=== PATIENT | male | born 1985 | race Caucasian/White ===

== ENCOUNTER 2017-09-28 22:04 | Emergency (ER) | payer MEDICAID ==
[2017-09-28 22:38] LABS: BASOPHILS # (AUTO) 0.1 10^3/uL (0.0-0.1); BASOPHILS % (AUTO) 0.7 %; EOSINOPHILS # (AUTO) 0.1 10^3/uL (0.0-0.7); EOSINOPHILS % (AUTO) 0.8 %; LYMPHOCYTES # (AUTO) 2.3 10^3/uL (1.5-3.5); LYMPHOCYTES % (AUTO) 22.5 %; MEAN CORPUSCULAR HEMOGLOBIN 31.3 pg (27.0-31.0); MEAN CORPUSCULAR HGB CONC 34.9 g/dL (32.0-36.0); MEAN CORPUSCULAR VOLUME 89.6 fL (80.0-94.0); MEAN PLATELET VOLUME 8.2 fL (7.4-11.4); MONOCYTES # (AUTO) 0.7 10^3/uL (0.0-1.0); MONOCYTES % (AUTO) 6.7 %; NEUTROPHILS # (AUTO) 7.1 10^3/uL (1.5-6.6); NEUTROPHILS % (AUTO) 69.3 %; PLT - PLATELET COUNT 194 10^3/uL (130-450); RED BLOOD COUNT 4.48 10^6/uL (4.70-6.10); RED CELL DISTRIBUTION WIDTH 13.3 % (12.0-15.0); WHITE BLOOD COUNT 10.3 x10^3/uL (4.8-10.8)
[2017-09-28 22:50] LABS: ALBUMIN 4.4 g/dL (3.2-5.5); ALBUMIN/GLOBULIN RATIO 1.8 (1.0-2.2); BILIRUBIN,TOTAL 0.9 mg/dL (0.2-1.0); CREATININE 1.1 mg/dL (0.6-1.2); TOTAL PROTEIN 6.8 g/dL (6.7-8.2)
--- NOTE | 2017-09-28 22:53 | XRAY Report ---
EXAM: CHEST RADIOGRAPHY EXAM DATE: 09/28/2017 10:30 PM. CLINICAL HISTORY: Chest pain. COMPARISON: None. TECHNIQUE: 2 views. FINDINGS: Lungs/Pleura: No focal opacities evident. No pleural effusion. No pneumothorax. Normal volumes. Mediastinum: Heart and mediastinal contours are unremarkable. Other: None. IMPRESSION: No acute intrathoracic plain film abnormality. [facility] Referring Provider Line: [phone] SITE ID: [id number]
--- NOTE | 2017-09-28 23:03 | ED Physician Documentation ---
PD HPI CHEST PAIN - Stated complaint Stated Complaint: CHEST PX - Chief complaint Chief Complaint: Cardiac - History obtained from History obtained from: Patient, Family - History of Present Illness Timing - onset: How many hours ago (8) Timing - onset during: Rest Timing - details: Gradual onset, Now resolved Quality: Sharp, Indigestion Location: Substernal Associated symptoms: No: Shortness of air, Diaphoresis, Nausea, Vomiting, Feeling faint / dizzy, General Weakness Similar symptoms before: Has not had sx before Recently seen: Not recently seen - Additional information Additional information: Patient is a 32 year old male with no significant past medical history who is presenting to the emergency department for chest pain. patient states that this morning he had sharp substernal chest pain. Patient didn't think much of it, but he had another episode this evening so his girlfriend made him come in for evaluation. patient denies any exertional component or significant family history of cardiac disease. Review of Systems Constitutional: denies: Fever, Chills Eyes: denies: Decreased vision, Photophobia Ears: reports: Reviewed and negative Nose: reports: Reviewed and negative Throat: denies: Sore throat Cardiac: reports: Chest pain / pressure. denies: Palpitations, Calf pain Respiratory: denies: Dyspnea, Cough, Wheezing GI: denies: Nausea, Vomiting : reports: Reviewed and negative Skin: reports: Reviewed and negative Musculoskeletal: reports: Reviewed and negative Neurologic: reports: Reviewed and negative Immunocompromised: denies: Immunocompromised PD PAST MEDICAL HISTORY - Past Medical History Past Medical History: No - Past Surgical History Past Surgical History: Yes - Present Medications Home Medications: Ambulatory Orders Medication Instructions Recorded Confirmed No Known Home Medications [No 09/28/17 09/28/17 Known Home Medications] - Allergies Allergies/Adverse Reactions: Allergies Allergy/AdvReac Type Severity Reaction Status Date / Time cefaclor [From [facility]] Allergy Unknown Verified 09/28/17 22:16 - Social History Does the pt smoke?: Yes Smoking Status: Current every day smoker Does the pt drink ETOH?: Yes Does the pt have substance abuse?: Yes Substance Use and Type: Marijuana - Immunizations Immunizations are current?: Yes PD ED PE NORMAL - Vitals Vital signs reviewed: Yes - General General: Alert and oriented X 3, No acute distress, Well developed/nourished - HEENT HEENT: Atraumatic, PERRL - Neck Neck: Supple, no meningeal sign, No JVD - Cardiac Cardiac: RRR, No murmur - Respiratory Respiratory: No respiratory distress, Clear bilaterally - Abdomen Abdomen: Soft, Non tender, Non distended - Derm Derm: Normal color, Warm and dry, No rash - Extremities Extremities: No deformity, No edema, No calf tenderness / cord - Neuro Neuro: Alert and oriented X 3, No motor deficit, No sensory deficit, Normal speech Results - Vitals Vitals: Vital Signs - 24 hr 09/28/17 22:14 Temperature 36.4 C L Heart Rate 91 Respiratory 18 Rate Blood Pressure 143/80 H O2 Saturation 99 Oxygen O2 Source Room air - EKG (time done) 2213 Rate: Rate (enter#) (91) Rhythm: NSR [place]: Normal Intervals: Normal [place] QRS: Normal Ischemia: Normal ST segments Compare to prior EKG: Old EKG unavailable Computer interpretation: Agree with computer - Labs Labs: Laboratory Tests 09/28/17 09/28/17 09/28/17 22:32 22:32 22:32 WBC 10.3 RBC 4.48 L Hgb 14.0 Hct 40.1 L MCV 89.6 MCH 31.3 H MCHC 34.9 RDW 13.3 Plt Count 194 MPV 8.2 Neut # 7.1 H Lymph # 2.3 [place] # 0.7 Eos # 0.1 Baso # 0.1 Absolute Nucleated RBC 0.00 Nucleated RBC % 0.0 Sodium 139 Potassium 4.0 Chloride 106 Carbon Dioxide 26 Anion Gap 7.0 BUN 23 H Creatinine 1.1 Estimated GFR (MDRD) 77 L Glucose 102 H Calcium 9.0 Total Bilirubin 0.9 AST 25 ALT 27 Alkaline Phosphatase 47 Troponin I < 0.04 Total Protein 6.8 Albumin 4.4 Globulin 2.4 Albumin/Globulin Ratio 1.8 Lipase 19 L - Rads (name of study) chest x-ray Radiology: Final report received (no acute disease process) PD MEDICAL DECISION MAKING - ED course Complexity details: reviewed old records, reviewed results, re-evaluated patient , considered differential, d/w patient ED course: Patient was seen and examined at bedside. ekg was performed and was within normal limits. labs were drawn and chest x-ray was done which was also negative. Patient's diagnostics were all within normal limits. Patient had a PERC score and HEART score of 0. Patient required no further inpatient work up and was stable for discharge with outpatient follow up. Departure - Departure Disposition: 01 Home, Self Care Clinical Impression: Gastroesophageal reflux disease Condition: Good Instructions: GERD Dc, ED Chest Pain NonCardiac Follow-Up: primary, care provider [Other] - Within 1 week Comments: Your diagnostics today were within normal limits. there is acute abnormalities on your diagnostics indicating the pain is unlikely cardiac in nature. It could be due to gastritis and you should decrease the amount of spicey and acidic foods that you eat. You should follow up with your doctor if the symptoms become more recurrent. You may return to the emergency department at any time for new, worsening or uncontrollable symptoms.
[2017-09-28 23:13] VITALS: BP 139/80
== END 2017-09-28 23:07 | disposition home or self-care (01) ==
LOC: ED 22:04
DX: K21.9 Gastro-esophageal reflux disease without esophagitis (principal); F17.200 Nicotine dependence, unspecified, uncomplicated
CPT/HCPCS: 36415; 71046; 80053; 83690; 84484; 85025; 93005; 99283; 99285

== ENCOUNTER 2018-06-01 06:55 | Emergency (ER) | payer MEDICAID ==
--- NOTE | 2018-06-01 07:29 | ED Physician Documentation ---
PD HPI BACK INJURY - Stated complaint Stated Complaint: BACK PAIN - History obtained from History obtained from: Patient - History of Present Illness Location: Both, Lower Type of injury: Fall (had 5 foot fall 2 weeks ago onto back but not hurting at that time. Onset low back pain just past couple of days, lower back with some burning feeling in anterior upper thighs. No weakness nor numbness lower in legs. NO urinary symptoms.) Timing - onset: How many days ago (2) Timing - duration: Days (2) Timing - details: Gradual onset, Still present Quality: Pain, Spasm, Aching. No: Tearing Improved by: Rest Worsened by: Moving, Palpating Associated symptoms: No: Fever, Weakness, Numbness, Incontinent of urine Contributing factors: No: Prior back surgery Similar symptoms before: Has not had sx before Recently seen: Not recently seen Review of Systems Constitutional: denies: Fever, Chills Nose: denies: Rhinorrhea / runny nose, Congestion Throat: denies: Sore throat Respiratory: denies: Cough GI: denies: Abdominal Pain, Nausea, Vomiting : denies: Dysuria, Incontinent Skin: denies: Rash, Lesions Neurologic: reports: Other (feeling of burning in anterior thigh muscles). denies: Focal weakness, Numbness PD PAST MEDICAL HISTORY - Past Medical History Cardiovascular: None Respiratory: None Neuro: None Endocrine/Autoimmune: None - Past Surgical History Past Surgical History: Yes - Present Medications Home Medications: Ambulatory Orders Medication Instructions Recorded Confirmed Dexamethasone [Decadron] 4 mg PO DAILY #5 tablet 06/01/18 HYDROcod/ACETAM 5/325 [[place] 5/325] 1 tab PO Q6H PRN #20 tablet 06/01/18 Ibuprofen [Motrin] 600 mg PO TID #30 tab 06/01/18 Methocarbamol [Robaxin] 500 mg PO Q6H PRN #25 tablet 06/01/18 - Allergies Allergies/Adverse Reactions: Allergies Allergy/AdvReac Type Severity Reaction Status Date / Time cefaclor [From [facility]] Allergy Unknown Verified 09/28/17 22:16 - Social History Does the pt smoke?: Yes Smoking Status: Current every day smoker Does the pt drink ETOH?: Yes Does the pt have substance abuse?: Yes - Immunizations Immunizations are current?: Yes PD ED PE NORMAL - Vitals Vital signs reviewed: Yes - General General: Alert and oriented X 3, No acute distress, Well developed/nourished - Abdomen Abdomen: Soft, Non tender - Back Back: No CVA TTP, No spinal TTP (has tenderness mainly right SI area. No vertebral tenderness. No rash nor sores. ) - Derm Derm: Normal color, Warm and dry, No rash - Extremities Extremities: No tenderness to palpate, Normal ROM s pain, No edema, No calf tenderness / cord - Neuro Neuro: Alert and oriented X 3, No motor deficit, No sensory deficit, Normal speech, Other (normal reflexes at knees. Normal sensation to touch in thighs, inguinal area. ) Results - Vitals Vitals: Oxygen O2 Source Room air PD MEDICAL DECISION MAKING - ED course Complexity details: considered differential (no red flags and seems like muscular low back pain. With tenderness in SI area. Had fall 2 weeks ago but no pain then. ), d/w patient - Sepsis Event Vital Signs: Oxygen O2 Source Room air Departure - Departure Disposition: Home, Self Care Clinical Impression: Low back strain Qualifiers: Encounter type: initial encounter Qualified Code(s): S39.012A - Strain of muscle, fascia and tendon of lower back, initial encounter Condition: Stable Record reviewed to determine appropriate education?: Yes Instructions: ED Low Back Pain Injury Follow-Up: Bucky Dickey PA-C [Primary Care Provider] - Prescriptions: Dexamethasone [Decadron] 4 mg PO DAILY #5 tablet HYDROcod/ACETAM 5/325 [[place] 5/325] 1 tab PO Q6H PRN #20 tablet PRN Reason: Pain Ibuprofen [Motrin] 600 mg PO TID #30 tab Methocarbamol [Robaxin] 500 mg PO Q6H PRN #25 tablet PRN Reason: Spasms Comments: Off today and then light lifting for the next several days. Ibuprofen 3 times a day. Decadron also for inflammation daily for the next 5 days. Add Robaxin muscle relaxant for stiffness. Heat and gentle stretching for the low back. Add Tylenol or hydrocodone if needed for pain. Recheck if not better over the next week. Forms: Activity restrictions Discharge Date/Time: 06/01/18 08:28
[2018-06-01] MEDS ORDERED: DEXAMETHASONE 10 MG/ML VIAL PO STA (07:48)
[2018-06-01] MEDS ORDERED: HYDROcod/ACETAM 5/325 MG TABLET PO STA (07:48)
[2018-06-01] MEDS ORDERED: METHOCARBAMOL 500 MG TABLET PO STA (07:48)
[2018-06-01] MEDS ORDERED: IBUPROFEN 600 MG TABLET PO STA (07:48)
[2018-06-01 08:27] VITALS: BP 122/82
== END 2018-06-01 08:28 | disposition home or self-care (01) ==
LOC: ED 06:55
DX: S39.012A Strain of muscle, fascia and tendon of lower back, initial encounter (principal); W17.89XA Other fall from one level to another, initial encounter
CPT/HCPCS: 99283; A9270

== ENCOUNTER 2018-08-25 15:20 | Emergency (ER) | payer MEDICAID ==
--- NOTE | 2018-08-25 15:57 | ED Physician Documentation ---
PD HPI GI BLEED - Stated complaint Stated Complaint: BLOOD IN STOOL - Chief complaint Chief Complaint: Abd Pain - History obtained from History obtained from: Patient - History of Present Illness Timing - onset: How many weeks ago (2) Timing - duration: Weeks (2) Timing - details: Gradual onset (has noted some red blood with wiping after BMs for 2 weeks, seems more amount the past few days. No rectal pain. Denies any mucous nor darker blood, clots, melena.) Associated symptoms: BRBPR Contributing factors: No: Sick contact Similar symptoms before: Has not had sx before Recently seen: Not recently seen Review of Systems Constitutional: denies: Fever, Chills Throat: reports: Dental pain / toothache (has had tooth pain right upper with some swelling of the gum. Tried to get dentist to take care of it, but it needs pulling and the oral surgeon or such was not in office, so has appt for later.) GI: reports: Bloody / black stool. denies: Abdominal Pain, Nausea, Vomiting, Constipation, Diarrhea (stool has been formed to loose. Notes red blood with BMs in toilet water and with wiping. No noted melena.) Neurologic: denies: Generalized weakness, Focal weakness, Numbness, Near syncope PD PAST MEDICAL HISTORY - Past Medical History Cardiovascular: None Respiratory: None Neuro: None Endocrine/Autoimmune: None - Past Surgical History Past Surgical History: Yes - Present Medications Home Medications: Ambulatory Orders Medication Instructions Recorded Confirmed Ibuprofen [Motrin] 600 mg PO TID #30 tab 06/01/18 Clindamycin HCl [Clindamycin 300MG 300 mg PO TID #20 capsule 08/25/18 CAP] Hydrocodone/Acetaminophen [[place] 1 each PO Q6H PRN #20 tablet 08/25/18 5-325 Tablet] Hydrocortisone Acetate [Anucort-Hc] 25 mg RC DAILY #10 supp.rect 08/25/18 Naproxen 375 mg PO BID #20 tablet 08/25/18 - Allergies Allergies/Adverse Reactions: Allergies Allergy/AdvReac Type Severity Reaction Status Date / Time cefaclor [From [facility]] Allergy Unknown Verified 08/25/18 15:29 - Social History Does the pt smoke?: Yes Smoking Status: Current every day smoker Does the pt drink ETOH?: Yes Does the pt have substance abuse?: Yes - Immunizations Immunizations are current?: Yes - POLST Patient has POLST: No PD ED PE NORMAL - Vitals Vital signs reviewed: Yes - General General: Alert and oriented X 3, Well developed/nourished - HEENT HEENT: No: Dentition benign (multiple caries. Has some swelling around gum at right upper incisor. Cavity at it. No fluctuance. ) - Neck Neck: Supple, no meningeal sign, No adenopathy - Cardiac Cardiac: RRR, No murmur - Respiratory Respiratory: Clear bilaterally - Abdomen Abdomen: Normal bowel sounds, Soft, Non tender, Non distended Results - Vitals Vitals: Vital Signs - 24 hr 08/25/18 08/25/18 15:26 16:50 Temperature 37.1 C 36.9 C Heart Rate 82 67 Respiratory 16 12 Rate Blood Pressure 109/68 157/90 H O2 Saturation 98 98 Oxygen O2 Source Room air PD MEDICAL DECISION MAKING - ED course Complexity details: considered differential (has internal hemorrhoid without bleeding right now. Rectal showed brown stool above that which tested guiac negative. So presume the bleeding was hemorrhoidal. Separate issue is his dental infection. ), d/w patient Departure - Departure Disposition: 01 Home, Self Care Clinical Impression: Infected dental carries, Blood in stool Hemorrhoid Qualifiers: Hemorrhoid type: unspecified Qualified Code(s): K64.9 - Unspecified hemorrhoids Condition: Stable Record reviewed to determine appropriate education?: Yes Instructions: ED Tooth Pain, ED Hematochezia Stable Follow-Up: Danilo Marshall PA-C [Primary Care Provider] - Praveen Wise MD [Provider Admit Priv/Credential] - Prescriptions: Clindamycin HCl [Clindamycin 300MG CAP] 300 mg PO TID #20 capsule Hydrocodone/Acetaminophen [[place] 5-325 Tablet] 1 each PO Q6H PRN #20 tablet PRN Reason: Pain Hydrocortisone Acetate [Anucort-Hc] 25 mg RC DAILY #10 supp.rect Naproxen 375 mg PO BID #20 tablet Comments: For the dental pain and likely infection, use clindamycin antibiotic 3 times a day as directed. Also naproxen anti-inflammatory twice daily and then add Tylenol or hydrocodone if needed for pain. For the rectal blood, it does feel like an internal hemorrhoid and the test on the stool from the digital exam tested negative for blood from up higher on my fingertip. I assume therefore the bleeding is from the hemorrhoid. Use Anusol suppository daily for the next 5-10 days until it seems improved. Drink lots of fluids. If you have persistent bleeding with bowel movements, you could follow- up with surgery as they could look higher with scopes or such to ensure there is no other cause above that. Discharge Date/Time: 08/25/18 17:00
[2018-08-25] MEDS ORDERED: CLINDAMYCIN 150 MG CAPSULE PO STA (16:36)
[2018-08-25] MEDS ORDERED: HYDROcod/ACETAM 5/325 MG TABLET PO STA (16:36)
[2018-08-25 16:51] VITALS: BP 157/90
== END 2018-08-25 17:00 | disposition home or self-care (01) ==
LOC: ED 15:20
DX: K92.1 Melena (principal); K02.9 Dental caries, unspecified; K64.9 Unspecified hemorrhoids; F17.200 Nicotine dependence, unspecified, uncomplicated
CPT/HCPCS: 99282; 99283; A9270

== ENCOUNTER 2019-03-17 13:47 | Outpatient (CLI) | payer MEDICAID ==
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
== END 2019-03-17 13:48 | disposition home or self-care (01) ==
LOC: DI.N 13:47
PROVIDERS: ATTEND Physician Assistant Medical
DX: M47.816 Spondylosis without myelopathy or radiculopathy, lumbar region (principal)
CPT/HCPCS: 72100

== ENCOUNTER 2021-01-13 11:43 | Emergency (ER) | payer MEDICAID ==
[2021-01-13] MEDS ORDERED: AMOXICILLIN 250 MG CAPSULE PO STA (12:11)
--- NOTE | 2021-01-13 12:14 | ED Physician Documentation ---
History of Present Illness - Stated complaint Stated Complaint: FACE PX - Chief complaint Chief Complaint: Heent - History obtained from History obtained from: Patient - Additonal information Additional information: Patient comes emergency department chief complaint of right facial swelling and tooth pain for the last few days. Patient states he has a history of poor dentition and has had other teeth extracted for the same problem. He recently moved from [place] and does not yet have a dentist. No fevers or chills. No difficulty speaking or swallowing. No throat tightness. No swelling in his neck or tongue. No other complaints at this time. Review of Systems Ten Systems: 10 systems reviewed and negative Constitutional: reports: Reviewed and negative Eyes: reports: Reviewed and negative Ears: reports: Reviewed and negative Nose: reports: Reviewed and negative Throat: reports: Dental pain / toothache Cardiac: reports: Reviewed and negative Respiratory: reports: Reviewed and negative GI: reports: Reviewed and negative : reports: Reviewed and negative Skin: reports: Reviewed and negative Musculoskeletal: reports: Reviewed and negative Neurologic: reports: Reviewed and negative Psychiatric: reports: Reviewed and negative Endocrine: reports: Reviewed and negative Immunocompromised: reports: Reviewed and negative PD PAST MEDICAL HISTORY - Past Medical History Cardiovascular: None Respiratory: None Neuro: None Endocrine/Autoimmune: None - Past Surgical History Past Surgical History: Yes Ortho: Other - Present Medications Home Medications: Ambulatory Orders Medication Instructions Recorded Confirmed Ibuprofen [Motrin] 600 mg PO TID #30 tab 06/01/18 Clindamycin HCl [Clindamycin 300MG 300 mg PO TID #20 capsule 08/25/18 CAP] Hydrocodone/Acetaminophen [[place] 1 each PO Q6H PRN #20 tablet 08/25/18 5-325 Tablet] Hydrocortisone Acetate [Anucort-Hc] 25 mg RC DAILY #10 supp.rect 08/25/18 Naproxen 375 mg PO BID #20 tablet 08/25/18 Amoxicillin 500 mg PO TID 7 Days #21 cap 01/13/21 HYDROcod/ACETAM 5/325 [[place] 5/325] 1 - 2 tablet PO Q6H PRN #14 tablet 01/13/21 - Allergies Allergies/Adverse Reactions: Allergies Allergy/AdvReac Type Severity Reaction Status Date / Time cefaclor [From [facility]] Allergy Unknown Verified 01/13/21 12:03 - Social History Does the pt smoke?: Yes Smoking Status: Current every day smoker Does the pt drink ETOH?: Yes Does the pt have substance abuse?: Yes Substance Use and Type: Marijuana - Immunizations Immunizations are current?: Yes - POLST Patient has POLST: No PD ED PE NORMAL - Vitals Vital signs reviewed: Yes - General General: Alert and oriented X 3, No acute distress, Well developed/nourished - HEENT HEENT: Atraumatic, PERRL, EOMI, Moist mucous membranes (No intraoral edema. No drooling.), Other (Mild facial edema right maxillary area. No erythema or crepitus.) - Neck Neck: Supple, no meningeal sign, No adenopathy - Respiratory Respiratory: No respiratory distress - Derm Derm: Normal color, Warm and dry, No rash - Extremities Extremities: No deformity - Neuro Neuro: Alert and oriented X 3 - Psych Psych: Normal mood, Normal affect Results - Vitals Vitals: Vital Signs - 24 hr 01/13/21 11:52 Temperature 36.8 C Heart Rate 68 Respiratory 16 Rate Blood Pressure 114/96 H O2 Saturation 100 Oxygen O2 Source Room air PD MEDICAL DECISION MAKING - ED course Complexity details: considered differential, d/w patient ED course: Patient was started on amoxicillin here in the emergency department. We have discussed the need for dental follow-up as soon as possible. We have discussed the usual indications for return. Departure - Departure Disposition: 01 Home, Self Care Clinical Impression: Dental infection Condition: Stable Instructions: ED Abscess Dental Prescriptions: Amoxicillin 500 mg PO TID 7 Days #21 cap HYDROcod/ACETAM 5/325 [[place] 5/325] 1 - 2 tablet PO Q6H PRN #14 tablet PRN Reason: Pain Comments: Please call immediately to make an appointment for follow-up with the dentist to talk about getting your tooth pulled. Take the antibiotics every day as directed until the course is complete. You may take the pain medication as needed. This pain medication may be combined with ibuprofen to have a greater effect. You may follow-up with [facility] in [place]. Their number is [phone].
[2021-01-13 12:44] VITALS: BP 116/94
== END 2021-01-13 12:45 | disposition home or self-care (01) ==
LOC: ED 11:43
DX: K04.7 Periapical abscess without sinus (principal); F17.200 Nicotine dependence, unspecified, uncomplicated
CPT/HCPCS: 99282; 99283; A9270